=== PATIENT | female | born 1935 | race Caucasian/White ===

== ENCOUNTER 2017-10-04 01:50 | Inpatient (IN) | payer OTHER ==
[2017-10-04] MEDS: DEXTROSE 5%-0.45% NACL 1,000 ML IV ×4 (04:11→23:21)
[2017-10-04 04:13] LABS: URINE PH (Dip) POC 5.5 (5.0-8.5)
[2017-10-04 04:13] LABS: URINE BLOOD (Dip) POC Trace-lysed (NEGATIVE); URINE GLUCOSE (Dip) POC Negative (NEGATIVE); URINE KETONES (Dip) POC Negative (NEGATIVE); URINE LEUKOCYTE EST (Dip) POC Trace (NEGATIVE); URINE NITRITE (Dip) POC Negative (NEGATIVE); URINE TOTAL PROTEIN POC 1+ (NEGATIVE)
[2017-10-04 04:28] LABS: ADD MAN DIFF? NO
[2017-10-04 04:30] LABS: WHITE BLOOD COUNT 4.9 10^3/ul (4.8-10.8)
[2017-10-04 04:30] LABS: BASOPHILS % 0.4 % (0.0-2.0); EOSINOPHILS # 0.1 10^3/ul (0.0-0.5); HEMATOCRIT 33.8 % (37.0-47.0); HEMOGLOBIN 11.1 g/dl (12.0-16.0); LYMPHOCYTES % 19.7 % (15.0-51.0); MEAN CORPUSCULAR HEMOGLOBIN 29.8 pg (29.0-33.0); MEAN CORPUSCULAR HGB CONC 32.8 g/dl (32.0-37.0); MEAN CORPUSCULAR VOLUME 90.6 fl (82.0-101.0); MEAN PLATELET VOLUME 10.8 fl (7.4-10.4); MONOCYTE # 0.5 10^3/ul (0.3-0.9); MONOCYTES % 9.8 % (0.0-11.0); NEUTROPHIL # 3.4 10^3/ul (1.6-7.5); NEUTROPHILS % 68.9 % (39.0-77.0); PLATELET COUNT 213 10^3/UL (140-415); RED BLOOD COUNT 3.73 10^6/ul (4.20-5.40); RED CELL DISTRIBUTION WIDTH 14.3 % (11.5-14.5)
[2017-10-04 04:56] LABS: ADD UMIC YES; UR ASCORBIC ACID NEGATIVE (NEGATIVE); UR BILIRUBIN (Dip) NEGATIVE (NEGATIVE); UR BLOOD (Dip) NEGATIVE (NEGATIVE); UR CLARITY CLEAR (CLEAR); UR COLOR YELLOW (YELLOW); UR GLUCOSE (Dip) NEGATIVE (NEGATIVE); UR KETONES (Dip) NEGATIVE (NEGATIVE); UR LEUKOCYTE ESTERASE (Dip) TRACE Leu/ul (NEGATIVE); UR NITRITE (Dip) NEGATIVE (NEGATIVE); UR RBC 1 /HPF (0-5); UR SPECIFIC GRAVITY (Dip) 1.012 (1.003-1.030); UR TOTAL PROTEIN (Dip) NEGATIVE (NEGATIVE); UR UROBILINOGEN (Dip) NEGATIVE (NEGATIVE); UR WBC 3 /HPF (0-5)
[2017-10-04 05:04] LABS: ANION GAP 19 (8-16); BLOOD UREA NITROGEN 33 mg/dl (7-20); CALCIUM 9.3 mg/dl (8.4-10.2); CARBON DIOXIDE 24 mmol/L (21-31); CHLORIDE 106 mmol/L (97-110); CREATININE 1.61 mg/dl (0.44-1.00); GLUCOSE 59 mg/dl (70-220); POTASSIUM 4.5 mmol/L (3.5-5.1); SODIUM 144 mmol/L (135-144)
[2017-10-04 05:15] LABS: TROPONIN-I 0.022 ng/ml (0.00-0.12)
[2017-10-04] MEDS ORDERED: ONDANSETRON 4 MG INJ IV ×2 (07:30→08:30)
[2017-10-04] MEDS ORDERED: ACETAMINOPHEN 325 MG TAB PO ×2 (07:30→08:30)
[2017-10-04] MEDS ORDERED: morphine LIQ (10 MG/5 ML) CUP PO (08:30)
[2017-10-04] MEDS ORDERED: ALBUTEROL/IPRATROPIUM (NEB) 3 ML AMP HHN (08:30)
[2017-10-04] MEDS ORDERED: NACL 0.9% 3 ML SYG IV (08:30)
[2017-10-04] MEDS ORDERED: HYDROCHLOROTHIAZIDE 25 MG TAB PO (09:00)
[2017-10-04] MEDS ORDERED: FUROSEMIDE 40 MG TAB PO (09:00)
[2017-10-04] MEDS: MULTIVITAMINS THERAPEUTIC TAB PO (11:37)
[2017-10-04] MEDS: ESCITALOPRAM 10 MG TAB PO (11:38)
[2017-10-04] MEDS: AMLODIPINE 10 MG TAB PO (11:40)
[2017-10-04] MEDS: Discontinue current oral sulfonylureas (glyburide, glipizide, and/or glimepiride) prior to XX (11:52)
[2017-10-04] MEDS: HYPOGLYCEMIA PROTOCOL when Glucose is <70 mg/dL or symptomatic <90 mg/dL. XX (11:52)
[2017-10-04] MEDS ORDERED: DEXTROSE 50% 50 ML SYRINGE IV ×2 (12:00)
[2017-10-04] MEDS ORDERED: GLUCOSE GEL 15 GRAM TUBE PO ×2 (12:00)
[2017-10-04] MEDS ORDERED: GLUCOSE GEL 15 GRAM TUBE BUCCAL (12:00)
[2017-10-04] MEDS ORDERED: GLUCAGON 1 MG INJ IM (12:00)
[2017-10-04] MEDS: INSULIN ASPART [NOVOLOG] 3 ML PEN SC ×3 (12:15→21:00)
[2017-10-04 12:38] LABS: IRON 26 ug/dl (35-150)
[2017-10-04 12:47] LABS: % IRON SATURATION 10 % SAT (22-52); TOTAL IRON BINDING CAPACITY 263 ug/dl (241-421)
[2017-10-04 12:54] LABS: HEMOGLOBIN A1C 6.7 % (0-5.9)
[2017-10-05] MEDS: ACCU-CHEK XX (02:00)
[2017-10-05 06:34] LABS: ADD MAN DIFF? NO
[2017-10-05 06:55] LABS: BASOPHILS % 0.3 % (0.0-2.0); EOSINOPHILS # 0.2 10^3/ul (0.0-0.5); EOSINOPHILS % 2.7 % (0.0-7.0); HEMATOCRIT 34.8 % (37.0-47.0); HEMOGLOBIN 11.5 g/dl (12.0-16.0); LYMPHOCYTES # 1.2 10^3/ul (0.8-2.9); MEAN CORPUSCULAR HEMOGLOBIN 29.9 pg (29.0-33.0); MEAN CORPUSCULAR VOLUME 90.6 fl (82.0-101.0); MEAN PLATELET VOLUME 11.4 fl (7.4-10.4); MONOCYTE # 0.4 10^3/ul (0.3-0.9); MONOCYTES % 7.2 % (0.0-11.0); NEUTROPHILS % 68.3 % (39.0-77.0); PLATELET COUNT 217 10^3/UL (140-415); RED BLOOD COUNT 3.84 10^6/ul (4.20-5.40); RED CELL DISTRIBUTION WIDTH 14.5 % (11.5-14.5)
[2017-10-05 06:55] LABS: WHITE BLOOD COUNT 5.9 10^3/ul (4.8-10.8)
[2017-10-05 07:02] LABS: ALANINE AMINOTRANSFERASE 34 IU/L (13-69); ALBUMIN 3.5 g/dl (3.3-4.9); ALKALINE PHOSPHATASE 94 IU/L (42-121); ANION GAP 16 (8-16); ASPARTATE AMINO TRANSFERASE 57 IU/L (15-46); BLOOD UREA NITROGEN 24 mg/dl (7-20); CALCIUM 9.6 mg/dl (8.4-10.2); CARBON DIOXIDE 25 mmol/L (21-31); CHLORIDE 103 mmol/L (97-110); CHOL/HDL RATIO 4.9 RATIO; CHOLESTEROL 183 mg/dl (100-200); CREATININE 1.37 mg/dl (0.44-1.00); GLUCOSE 175 mg/dl (70-220); HDL CHOLESTEROL 37 mg/dl (33-92); LDL CHOLESTEROL,CALCULATED 117 mg/dl; POTASSIUM 4.2 mmol/L (3.5-5.1); SODIUM 140 mmol/L (135-144); TOTAL PROTEIN 6.4 g/dl (6.1-8.1); TRIGLYCERIDES 144 mg/dl (0-149)
[2017-10-05] MEDS: MULTIVITAMINS THERAPEUTIC TAB PO (08:13)
[2017-10-05] MEDS: ESCITALOPRAM 10 MG TAB PO (08:13)
[2017-10-05] MEDS: AMLODIPINE 10 MG TAB PO (08:14)
[2017-10-05] MEDS: INSULIN ASPART [NOVOLOG] 3 ML PEN SC ×4 (08:19→20:11)
[2017-10-05] MEDS: DEXTROSE 5%-0.45% NACL 1,000 ML IV ×4 (10:07→23:06)
[2017-10-06] MEDS: ACCU-CHEK XX (01:04)
[2017-10-06 07:18] LABS: ANION GAP 17 (8-16); BLOOD UREA NITROGEN 18 mg/dl (7-20); CARBON DIOXIDE 26 mmol/L (21-31); CHLORIDE 106 mmol/L (97-110); CREATININE 1.34 mg/dl (0.44-1.00); GLUCOSE 191 mg/dl (70-220); POTASSIUM 3.9 mmol/L (3.5-5.1); SODIUM 145 mmol/L (135-144)
[2017-10-06] MEDS: DEXTROSE 5%-0.45% NACL 1,000 ML IV (08:01)
[2017-10-06] MEDS: MULTIVITAMINS THERAPEUTIC TAB PO (08:04)
[2017-10-06] MEDS: AMLODIPINE 10 MG TAB PO (08:04)
[2017-10-06] MEDS: ESCITALOPRAM 10 MG TAB PO (08:04)
[2017-10-06] MEDS: INSULIN ASPART [NOVOLOG] 3 ML PEN SC ×2 (08:11→12:16)
== END 2017-10-06 13:15 | disposition home or self-care (01) | DRG 637 ==
LOC: E/R 01:50 → MS2 07:10
PROVIDERS: Internal Medicine
DX: E11.649 Type 2 diabetes mellitus with hypoglycemia without coma (principal); G93.41 Metabolic encephalopathy; N17.9 Acute kidney failure, unspecified; E11.22 Type 2 diabetes mellitus with diabetic chronic kidney disease; D63.1 Anemia in chronic kidney disease; E78.5 Hyperlipidemia, unspecified; M19.90 Unspecified osteoarthritis, unspecified site; I12.9 Hypertensive chronic kidney disease with stage 1 through stage 4 chronic kidney disease, or unspecified chronic kidney disease; N18.9 Chronic kidney disease, unspecified; F32.9 Major depressive disorder, single episode, unspecified; Z79.84 Long term (current) use of oral hypoglycemic drugs
CPT/HCPCS: 36415; 76775; 80048; 80053; 80061; 81001; 81003; 82962; 83036; 83540; 84484; 85025; 93005; 93306; 99285-25